=== PATIENT | male | born 1965 | race Native Hawaiian/Other Pacific Islander ===

== ENCOUNTER 2020-10-21 11:13 | Observation (INO) | payer BC ==
[~2020-10-21] VITALS: Ht 167.6 cm; Wt 84.0 kg
--- NOTE | 2020-10-21 12:15 | NUR ---
PATIENT WAITING FOR [facility] TRANSFER, ASKING FOR [facility], WILL GET FROM [facility].
[2020-10-21 12:37] LABS: BASOPHILS % (AUTO) 0.7 % (0-1); EOSINOPHILS # (AUTO) 0.1 X10'3 (0-0.9); EOSINOPHILS % (AUTO) 1.8 % (0-6); HEMATOCRIT 47.7 % (42.0-52.0); HEMOGLOBIN 16.7 g/dl (14.0-17.9); LYMPHOCYTES # (AUTO) 1.6 X10'3 (1.1-4.8); LYMPHOCYTES % (AUTO) 31.1 % (21-51); MEAN CORPUSCULAR HEMOGLOBIN 31.1 PG (27.0-31.0); MEAN CORPUSCULAR HGB CONC 35.1 g/dL (33.0-36.5); MEAN CORPUSCULAR VOLUME 88.5 FL (78-98); MEAN PLATELET VOLUME 8.2 FL (7.4-10.4); MONOCYTES # (AUTO) 0.3 X10'3 (0-0.9); MONOCYTES % (AUTO) 6.7 % (2-12); NEUTROPHILS # (AUTO) 3.1 X10'3 (1.8-7.7); NEUTROPHILS % (AUTO) 59.7 % (42-75); PLATELET COUNT 181 X10'3 (140-440); RED BLOOD COUNT 5.38 X10'6 (4.70-6.10); RED CELL DISTRIBUTION WIDTH 12.9 % (11.5-14.5); WHITE BLOOD COUNT 5.1 X10'3 (4.5-11.0)
[2020-10-21 12:58] LABS: ALANINE AMINOTRANSFERASE 37 U/L (12-78); ALBUMIN 3.7 G/DL (3.4-5.0); ALBUMIN/GLOBULIN RATIO 0.9 (1.1-1.5); ALKALINE PHOSPHATASE 48 IU/L (46-116); ANION GAP 12 (8-16); ASPARTATE AMINO TRANSFERASE 21 U/L (10-37); BILIRUBIN,TOTAL 0.9 MG/DL (0.1-1.0); BLOOD UREA NITROGEN 19 MG/DL (7-18); BUN/CREATININE RATIO 17.1 (5.4-32.0); CALCIUM 9.2 MG/DL (8.5-10.1); CHLORIDE 101 MMOL/L (99-107); CREATININE 1.11 MG/DL (0.60-1.10); GLUCOSE 412 MG/DL (70-104); POTASSIUM 4.4 MMOL/L (3.5-5.1); SODIUM 139 MMOL/L (135-145); TOTAL CARBON DIOXIDE 25.7 MMOL/L (24-32); TOTAL PROTEIN 7.8 G/DL (6.4-8.2); eGFR 69 ML/MIN
[2020-10-21] MEDS ORDERED: NO HOME MEDS (15:06)
[2020-10-21] MEDS ORDERED: dextrose 50%-water 50ml dispensing syringe IV PRN ×2 (15:10)
[2020-10-21] MEDS ORDERED: magnesium hydroxide 30ml (MOM) UD suspension PO PRN (15:10)
[2020-10-21] MEDS ORDERED: insulin Lispro (HumaLOG) vial - multi-dose SQ SCH (15:10)
[2020-10-21] MEDS ORDERED: nitroGLYCERIN 0.4mg SUBLingual tab SL PRN ×2 (15:10→16:05)
[2020-10-21] MEDS ORDERED: enoxaparin 80mg/0.8ml syringe SUBCUT ONE (15:10)
[2020-10-21] MEDS ORDERED: dextrose ORAL solution 15 GM/59 ML bottle PO PRN ×2 (15:10)
[2020-10-21] MEDS ORDERED: acetaminophen 325mg tablet PO PRN ×2 (15:10)
[2020-10-21] MEDS ORDERED: HYDROcodone/acetaminophen 10/325mg tab PO PRN (15:10)
[2020-10-21] MEDS ORDERED: HYDROcodone/acetaminophen 5mg/325mg tablet PO PRN (15:10)
[2020-10-21] MEDS ORDERED: ondansetron/PF 4mg/2ml inj IV PRN (15:10)
[2020-10-21] MEDS ORDERED: morphine 2 MG/ML inj. syringe IV PRN ×2 (15:10)
[2020-10-21] MEDS ORDERED: glucagon, human recombinant 1mg kit SUBCUT PRN (15:10)
[2020-10-21] MEDS ORDERED: MESSAGE TO PHARMACY PO ONE (15:10)
[2020-10-21] MEDS ORDERED: mag hydrox/Alum hydrox/simeth 30ml oral suspension PO PRN (15:10)
[2020-10-21 15:28] LABS: HEMOGLOBIN A1C 9.5 % (4.5-6.2)
[2020-10-21] MEDS ORDERED: aminophylline 250mg/10ml inj. IV PRN (16:05)
[2020-10-21] MEDS ORDERED: regadenoson 0.4mg/5ml syringe IV PRN (16:05)
[2020-10-21] MEDS ORDERED: metoprolol tartrate 1mg/ml inj IV PRN (16:05)
[2020-10-21 16:34] LABS: D-DIMER < 0.19 MG/L FEU (0-0.50)
--- NOTE | 2020-10-21 18:39 | NUR ---
MURALI, PTS ([phone]) TALKINIG WITH THE LOBBY SCREENER OF [employer]: SHE DOSE NO TKNOW IF PT WAS CANDID ABOUT HIS ALCOHOL CONSUPTION, HE MAY HAVE HAD 1-4 BEERS AND MAYBE 2 SHOTS OF HARD ALCOHOL. SHE WORRYS ABOUT PT WITHDRAWING. SHE IS ALSO REQUESTING AN UPDATE FROM THE RN OR MD, SHE REPORTS NO ONE HAS UPDATED HER SINCE HE HAS BEEN HERE. DAYANA, PRIMARY RN, UPDATED.
--- NOTE | 2020-10-21 19:02 | NUR ---
Pt awaiting ipa, denies any cp at this time. Pt is aware of plan of care and that he may be an admit hold in the ER through the night. VSS. Voiding 500 cc's light yellow urine in urinal. Up with steady gait. Eating all of his dinner. currently sitting in a chair and eating the rest of his salad. To be NPO at [facility] for [facility] in am.
--- NOTE | 2020-10-21 19:12 | NUR ---
, Alexandra, called with update of plan of care.
[2020-10-21] MEDS ORDERED: insulin glargine (Lantus) pen - multi-dose SQ SCH (21:00)
[2020-10-22] VITALS (7 sets, daily range): BP systolic 114–131; BP diastolic 67–91
--- NOTE | 2020-10-22 06:08 | NUR ---
UNEVENTFUL NIGHT NO COMPLAINTS SLEPT FOR 6 HOURS
[2020-10-22] MEDS ORDERED: aspirin 81mg tablet.DR PO SCH (08:00)
[2020-10-22 08:46] LABS: BASOPHILS % (AUTO) 0.7 % (0-1); EOSINOPHILS # (AUTO) 0.1 X10'3 (0-0.9); HEMATOCRIT 47.1 % (42.0-52.0); HEMOGLOBIN 16.4 g/dl (14.0-17.9); LYMPHOCYTES # (AUTO) 1.9 X10'3 (1.1-4.8); LYMPHOCYTES % (AUTO) 43.9 % (21-51); MEAN CORPUSCULAR HEMOGLOBIN 30.5 PG (27.0-31.0); MEAN CORPUSCULAR HGB CONC 34.7 g/dL (33.0-36.5); MEAN CORPUSCULAR VOLUME 87.7 FL (78-98); MEAN PLATELET VOLUME 7.9 FL (7.4-10.4); MONOCYTES # (AUTO) 0.3 X10'3 (0-0.9); MONOCYTES % (AUTO) 7.5 % (2-12); NEUTROPHILS % (AUTO) 44.9 % (42-75); PLATELET COUNT 165 X10'3 (140-440); RED BLOOD COUNT 5.37 X10'6 (4.70-6.10); RED CELL DISTRIBUTION WIDTH 12.7 % (11.5-14.5); WHITE BLOOD COUNT 4.3 X10'3 (4.5-11.0)
[2020-10-22 09:11] LABS: ALBUMIN 3.4 G/DL (3.4-5.0); ANION GAP 10 (8-16); BLOOD UREA NITROGEN 19 MG/DL (7-18); BUN/CREATININE RATIO 19.4 (5.4-32.0); CALCIUM 8.3 MG/DL (8.5-10.1); CHLORIDE 101 MMOL/L (99-107); CHOL/HDL RATIO 5.5 (0.00-4.99); CHOLESTEROL 164 MG/DL (0-200); CREATININE 0.98 MG/DL (0.60-1.10); GLUCOSE 218 MG/DL (70-104); HDL CHOLESTEROL 30 MG/DL (35-60); LDL CHOLESTEROL 106 MG/DL (50-100); POTASSIUM 3.7 MMOL/L (3.5-5.1); SODIUM 137 MMOL/L (135-145); TOTAL CARBON DIOXIDE 26.4 MMOL/L (24-32); TRIGLYCERIDES 206 MG/DL (20-135); eGFR 79 ML/MIN
--- NOTE | 2020-10-22 09:26 | NUR ---
Dr Antony in the ED and gave verbal order that it is okay for the pt to be transported to his stress test without a gambling monitor.
--- NOTE | 2020-10-22 09:29 | NUR ---
to nuc med
--- NOTE | 2020-10-23 10:48 | NUR ---
Patients , Cassidy, Called stating that new prescription for glipizide had not been called in or faxed to pharmacy listed. Per Patients chart patient was to be placed on glipizide 5 mg 1 tab BID for 30 days with a total of 60 tablets. Cassidy requested patients prescription be called into the [facility] on [address]. Called in prescription to pharmacy per request. All questions answered at time of phone call with .
== END 2020-10-22 15:15 | disposition home or self-care (01) ==
LOC: ER 11:14 → ED HOLD 15:06 → EDBEDREQ 10-22 12:51
PROVIDERS: ADMIT Internal Medicine; ATTEND Internal Medicine
DX: R07.89 Other chest pain (principal); R06.02 Shortness of breath; E11.65 Type 2 diabetes mellitus with hyperglycemia; Z87.891 Personal history of nicotine dependence; Z82.49 Family history of ischemic heart disease and other diseases of the circulatory system
CPT/HCPCS: 36415; 71045; 78452; 80048; 80053; 80061; 82948; 83036; 83880; 84484; 85025; 85379; 93005; 93017; 93306; 96372; 99285; A9500; G0378; J1815; J2785